=== PATIENT | female | born 1995 | race African-American/Black ===

== ENCOUNTER 2016-10-24 12:17 | Emergency (ER) | payer OTHER ==
--- NOTE | 2016-10-24 12:33 | ER Document Report ---
ED Medical Screen (RME) - General Stated Complaint: ABDOMINAL CRAMPING Mode of Arrival: Ambulatory Information source: Patient Notes: Patient states she is currently 11 weeks and had bleeding with pelvic cramping that started today. No urinary symptoms. G 1 P0. hx: None I have greeted and performed a rapid initial assessment of this patient. A comprehensive ED assessment and evaluation of the patient, analysis of test results and completion of the medical decision making process will be conducted by additional ED providers. - Related Data Allergies/Adverse Reactions: No Known Allergies Allergy (Verified 10/24/16 12:31) Physical Exam - Abdominal Tenderness: Tender - Lower pelvic Course - Re-evaluation Re-evalutation: 10/24/16 12:[address] Coronado regarding ultrasound imaging
[2016-10-24 13:11] LABS: ABSOLUTE LYMPHOCYTES (AUTO) 0.9 10^3/uL (0.5-4.7); ABSOLUTE MONOCYTES (AUTO) 0.4 10^3/uL (0.1-1.4); BASOPHILS % (AUTO) 0.4 % (0-2); EOSINOPHILS % (AUTO) 0.5 % (0-6); HEMATOCRIT 35.8 % (36.0-47.0); HEMOGLOBIN 11.9 g/dL (12.0-15.5); HGB HCT DIFFERENCE -0.1; LYMPHOCYTES % (AUTO) 12.1 % (13-45); MEAN CORPUSCULAR HEMOGLOBIN 27.7 pg (27.0-33.4); MEAN CORPUSCULAR HGB CONC 33.2 g/dL (32.0-36.0); MEAN CORPUSCULAR VOLUME 83 fl (80-97); MONOCYTES % (AUTO) 5.5 % (3-13); RED BLOOD COUNT 4.29 10^6/uL (3.72-5.28); RED CELL DISTRIBUTION WIDTH 13.5 % (11.5-14.0); SEGMENTED NEUTROPHILS % (AUTO) 81.5 % (42-78); WHITE BLOOD COUNT 7.3 10^3/uL (4.0-10.5)
[2016-10-24 13:35] LABS: ALANINE AMINOTRANSFERASE 23 U/L (9-52); ALBUMIN 3.3 g/dL (3.5-5.0); ALKALINE PHOSPHATASE 57 U/L (38-126); ANION GAP 8 (5-19); ASPARTATE AMINO TRANSFERASE 18 U/L (14-36); BILIRUBIN,TOTAL 0.4 mg/dL (0.2-1.3); BLOOD UREA NITROGEN 6 mg/dL (7-20); CALCIUM 9.1 mg/dL (8.4-10.2); CARBON DIOXIDE 24 mmol/L (22-30); CHLORIDE 104 mmol/L (98-107); CREATININE RESULT 0.61 mg/dL (0.52-1.25); GLUCOSE 108 mg/dL (75-110); POTASSIUM 3.8 mmol/L (3.6-5.0); SODIUM 135.9 mmol/L (137-145); TOTAL PROTEIN 6.8 g/dL (6.3-8.2)
--- NOTE | 2016-10-24 14:45 | ER Document Report ---
ED General - General Chief Complaint: Vag Bleeding, +preg <12wks Stated Complaint: ABDOMINAL CRAMPING Mode of Arrival: Ambulatory TRAVEL OUTSIDE OF THE [place] IN LAST 30 DAYS: No - HPI Patient complains to provider of: vaginal bleeding positive Notes: Patient states started having some abdominal cramping and bleeding today. Patient is a . Patient otherwise denies any fevers chills nausea vomiting denies any trauma to the abdomen. Patient denies any recent course. Patient states she is currently wearing a pad. No other issues - Related Data Allergies/Adverse Reactions: No Known Allergies Allergy (Verified 10/24/16 12:31) Past Medical History - General Information source: Patient - Social History Smoking Status: Unknown if Ever Smoked Chew tobacco use (# tins/day): No Frequency of alcohol use: None Drug Abuse: None Family History: Reviewed & Not Pertinent Patient has suicidal ideation: No Patient has homicidal ideation: No Renal/ Medical History: Denies: Hx Peritoneal Dialysis Review of Systems - Review of Systems Constitutional: No symptoms reported EENT: No symptoms reported Cardiovascular: No symptoms reported Respiratory: No symptoms reported Gastrointestinal: No symptoms reported Genitourinary: No symptoms reported Musculoskeletal: No symptoms reported, Other - Vaginal bleeding Skin: No symptoms reported Hematologic/Lymphatic: No symptoms reported Neurological/Psychological: No symptoms reported -: Yes All other systems reviewed and negative Physical Exam - Vital signs Vitals: Temp Pulse Resp BP Pulse Ox 98.3 F 84 13 121/58 L 100 10/24/16 12:32 10/24/16 12:32 10/24/16 12:32 10/24/16 12:32 10/24/16 12:32 Interpretation: Normal - General General appearance: Appears well, Alert - HEENT Head: Normocephalic, Atraumatic Eyes: Normal Pupils: PERRL - Respiratory Respiratory status: No respiratory distress Chest status: Nontender Breath sounds: Normal Chest palpation: Normal - Cardiovascular Rhythm: Regular Heart sounds: Normal auscultation Murmur: No - Abdominal Inspection: Normal Distension: No distension Bowel sounds: Normal Tenderness: Nontender Organomegaly: No organomegaly - Back Back: Normal, Nontender - Extremities General upper extremity: Normal inspection, Nontender, Normal color, Normal ROM , Normal temperature General lower extremity: Normal inspection, Nontender, Normal color, Normal ROM , Normal temperature, Normal weight bearing. No: Silvana's sign - Neurological Neuro grossly intact: Yes Cognition: Normal Orientation: AAOx4 Prudencio Coma Scale Eye Opening: Spontaneous [place] Coma Scale Verbal: Oriented Prudencio Coma Scale Motor: Obeys Commands [place] Coma Scale Total: 15 Speech: Normal Motor strength normal: LUE, RUE, LLE, RLE Sensory: Normal - Psychological Associated symptoms: Normal affect, Normal mood - Skin Skin Temperature: Warm Skin Moisture: Dry Skin Color: Normal Course - Re-evaluation Re-evalutation: 10/24/16 14:58 Patient's ultrasound shows some signs of placental abruption. The discuss this with her [employer] recommends pelvic rest follow-up with the patient's [employer] at [facility]. This was relayed to the patient. Patient states understanding otherwise heart rate is normal patient states understanding of possible threatened miscarriage. Understands pelvic rest. Patient will be discharged - Vital Signs Vital signs: Temp Pulse Resp BP Pulse Ox 98.3 F 84 13 121/58 L 100 10/24/16 12:32 10/24/16 12:32 10/24/16 12:32 10/24/16 12:32 10/24/16 12:32 - Laboratory Result Diagrams: 10/24/16 12:52 10/24/16 12:52 Laboratory results interpreted by me: 10/24/16 10/24/16 12:52 12:52 Hgb 11.9 L Hct 35.8 L Seg Neutrophils % 81.5 H Lymphocytes % 12.1 L Sodium 135.9 L BUN 6 L Albumin 3.3 L Beta HCG, Quant 84993.00 H Discharge - Discharge Clinical Impression: Vaginal bleeding before 22 weeks gestation Placental abruption Qualifiers: Trimester: first trimester Qualified Code(s): O45.91 - Premature separation of placenta, unspecified, first trimester Condition: Good Disposition: HOME, SELF-CARE Instructions: Mild Placental Abruption ([facility]), Threatened Miscarriage ([facility]), ([facility]) Additional Instructions: Please follow-up with your [employer] in the next 48 hours. Return to the ER symptoms worsen. Please observe pelvic rest. Nothing inside the vagina no tampons the toys no sex Forms: Return to Work
[2016-10-24 15:25] VITALS: BP 120/65
== END 2016-10-24 15:05 | disposition home or self-care (01) ==
LOC: ER 12:17
DX: O20.9 Hemorrhage in early pregnancy, unspecified (principal); O45.91 Premature separation of placenta, unspecified, first trimester; Z3A.11 11 weeks gestation of pregnancy
CPT/HCPCS: 36415; 76801; 80053; 84702; 85025; 86900; 86901; 99284